=== PATIENT | female | born 1950 | race Caucasian/White ===

== ENCOUNTER 2017-10-31 04:00 | Emergency (ER) | payer OTHER ==
[~2017-10-31] VITALS: Ht 162.6 cm; Wt 81.5 kg
[~2017-10-31 04:00] MED LIST: ALEVE220 MG PO; MELOXICAM15 MG PO; OMEPRAZOLE40 M1 PO; SYNTHROID150 MCG PO; ULTRAM50 MG PO
[2017-10-31] MEDS ORDERED: MEDROL DOSEPAK4 MG PO (05:20)
[2017-10-31] MEDS ORDERED: VALIUM5 MG PO (05:20)
[2017-10-31] MEDS ORDERED: PERCOCET 5/31 TABLET PO (05:20)
[2017-10-31 05:43] VITALS: BP 160/89
== END 2017-10-31 05:44 | disposition home or self-care (01) ==
LOC: EME 04:00
DX: M43.6 Torticollis (principal); M62.838 Other muscle spasm; Z88.5 Allergy status to narcotic agent; Z91.041 Radiographic dye allergy status
CPT/HCPCS: 72125; 99281; 99284; J1885

== ENCOUNTER 2018-04-02 18:11 | Observation (INO) | payer OTHER ==
[~2018-04-02] VITALS: Ht 165.1 cm; Wt 81.1 kg
[~2018-04-02 18:11] MED LIST changes: +MEDROL DOSEPAK4 MG PO; +PERCOCET 5/31 TABLET PO; +SYNTHROID125 MCG PO; -SYNTHROID150 MCG PO; +VALIUM5 MG PO
[2018-04-02 19:08] LABS: BASOPHIL (%) 0.5 % (0-1); EOSINOPHIL COUNT 0.2 K/uL (0-0.3); HEMATOCRIT 38.8 % (36.0-46.0); HEMOGLOBIN 12.8 G/DL (11.9-15.5); IMMATURE GRANULOCYTE (%) 0.3 % (0.0-0.7); LYMPHOCYTE (%) 33.3 % (15-42); LYMPHOCYTE COUNT 2.9 K/uL (1.0-2.8); MCH 27.2 PG (29.0-34.0); MCV 82.4 FL (83-99); MONOCYTE (%) 6.5 % (3-12); MONOCYTE COUNT 0.6 K/uL (0-0.8); NEUTROPHIL (%) 57.4 % (45-76); PLATELET COUNT 235 K/uL (156-360); RBC DIS.WIDTH-CV 13.2 % (11.8-14.6); RBC DIS.WIDTH-SD 39.6 % (39-53); RED BLOOD COUNT 4.71 M/uL (3.80-5.20); WHITE BLOOD COUNT 8.7 K/uL (4.1-10.2)
[2018-04-02 19:24] LABS: ALBUMIN 4.4 g/dL (3.2-4.8); CHLORIDE 112 mEq/L (99-109); POTASSIUM 3.9 mEq/L (3.7-5.4); PTT 25.4 SEC (25-37); SODIUM 144 mEq/L (136-147)
[2018-04-02 19:25] LABS: MAGNESIUM 2.5 mg/dL (1.3-2.7)
[2018-04-02 19:27] LABS: GLUCOSE 102 mg/dL (70-99)
[2018-04-02 19:29] LABS: TOTAL BILIRUBIN 0.2 mg/dL (0.0-1.0)
[2018-04-02 19:30] LABS: ALKALINE PHOSPHATASE 71 IU/L (3-129)
[2018-04-02 19:31] LABS: CREATININE 0.8 mg/dL (0.6-1.3); GFR ESTIMATE (CALCULATED) > 59 mL/min/
[2018-04-02 19:32] LABS: AST (GOT) 22 IU/L (2-34); UREA NITROGEN (BUN) 17 mg/dL (9-23)
[2018-04-02 19:33] LABS: ALT (GPT) 30 IU/L (3-49)
[2018-04-02 19:40] LABS: TROP-I INTERPRETATION NEGATIVE; TROPONIN-I < 0.01 ng/mL (0.0-0.30)
[2018-04-02 20:15] LABS: THYROTROPIN (TSH) 4.3 MIU/L (0.4-5.5)
[2018-04-02 23:33] LABS: HDL CHOLESTEROL 62 MG/DL (Desirable>=50); LDL CHOLESTEROL 110 mg/dL (Desirable<100); NON-HDL CHOLESTEROL 140 mg/dL (Desirable<160); TOTAL CHOLESTEROL 202 mg/dL (Desirable<200); TRIGLYCERIDES 148 MG/DL (Normal: <150)
[2018-04-03 00:18] VITALS: BP 146/78
[2018-04-03 03:18] VITALS: BP 153/72
[2018-04-03 07:55] VITALS: BP 160/76
[2018-04-03 10:32] VITALS: BP 140/68
[2018-04-03 14:59] VITALS: BP 159/82
[2018-04-03] MEDS ORDERED: VALACYCLOVIR1000 MG PO (15:52)
[2018-04-03] MEDS ORDERED: PREDNISONE20 MG PO (15:53)
[2018-04-04 09:29] LABS: HEMOGLOBIN A1c (GLYCOHEMOGLOB) 5.8 % (Below 5.7)
[2018-04-04 10:29] LABS: LYME DISEASE SEROLOGY SCREEN NEGATIVE (NEGATIVE)
== END 2018-04-03 16:18 | disposition home or self-care (01) ==
LOC: EME 18:11 → EDOF 22:27 → ENRESERV 22:28 → 4SOUTH 04-03 00:15
PROVIDERS: Emergency Medicine; Psychiatry & Neurology Clinical Neurophysiology; Student in an Organized Health Care Education/Training Program
DX: G51.0 Bell's palsy (principal); E03.9 Hypothyroidism, unspecified; R19.7 Diarrhea, unspecified; R51 Headache; M19.90 Unspecified osteoarthritis, unspecified site; F41.9 Anxiety disorder, unspecified; Z90.710 Acquired absence of both cervix and uterus; Z82.49 Family history of ischemic heart disease and other diseases of the circulatory system; Z88.5 Allergy status to narcotic agent; Z91.041 Radiographic dye allergy status
CPT/HCPCS: 70450; 70553; 71045; 80053; 80061; 83036; 83735; 84439; 84443; 84484; 85025; 85610; 85730; 86618; 93005; 99281; 99285; G0378; J1650; J7030